=== PATIENT | female | born 1970 | race Two or more races ===

== ENCOUNTER → 2018-01-17 | Emergency (ER) | payer OTHER ==
[~2018-01-17] MED LIST: AVAPRO300 MG PO; GLUCOPHAGE XR500 MG; METFORMIN HCL500 MG; MOTRIN800 MG PO
== END | disposition left against medical advice (07) ==
LOC: ER 12:07
DX: Z53.20 Procedure and treatment not carried out because of patient's decision for unspecified reasons (principal)

== ENCOUNTER 2018-03-24 17:17 | Emergency (ER) | payer OTHER ==
[~2018-03-24] VITALS: Ht 154.9 cm; Wt 93.0 kg
== END 2018-03-24 21:46 | disposition home or self-care (01) ==
LOC: ER 17:17
DX: N83.291 Other ovarian cyst, right side (principal); R10.2 Pelvic and perineal pain

== ENCOUNTER 2018-11-14 14:59 | Emergency (ER) | payer OTHER ==
[~2018-11-14] VITALS: Ht 154.9 cm; Wt 113.4 kg
[2018-11-14] MEDS ORDERED: GLUCOPHAGE XR750 MG (15:37)
== END 2018-11-14 19:35 | disposition home or self-care (01) ==
LOC: ER 14:59
DX: K52.89 Other specified noninfective gastroenteritis and colitis (principal); E86.0 Dehydration; R10.13 Epigastric pain

== ENCOUNTER 2020-03-28 11:58 | Emergency (ER) | payer OTHER ==
[~2020-03-28] VITALS: Ht 154.9 cm; Wt 90.7 kg
[~2020-03-28 11:58] MED LIST changes: +GLUCOPHAGE XR750 MG
== END 2020-03-28 18:36 | disposition home or self-care (01) ==
LOC: ER 11:58
DX: K52.89 Other specified noninfective gastroenteritis and colitis (principal); Z03.818 Encounter for observation for suspected exposure to other biological agents ruled out

== ENCOUNTER 2022-02-18 11:01 | Day surgery (SDC) | payer OTHER ==
[~2022-02-18 11:01] MED LIST changes: +ASA81 MG PO; +NORVASC5 MG PO; +PLAVIX75 MG PO; +XIGDUO XR 10 M1 EAC1 PO
== END 2022-02-18 19:20 | disposition home or self-care (01) ==
LOC: CIR.AMB 11:01
PROVIDERS: ATTEND Student in an Organized Health Care Education/Training Program
DX: N72 Inflammatory disease of cervix uteri (principal); I10 Essential (primary) hypertension; Z86.16 Personal history of COVID-19; Z95.0 Presence of cardiac pacemaker; G43.909 Migraine, unspecified, not intractable, without status migrainosus; E66.9 Obesity, unspecified

== ENCOUNTER 2024-08-04 15:37 | Outpatient (CLI) | payer OTHER | END 2024-08-04 16:01 | disposition home or self-care (01) | LOC: RAD 15:37 | PROVIDERS: ATTEND General Practice | DX: R50.9 Fever, unspecified (principal); M06.812 Other specified rheumatoid arthritis, left shoulder ==

== ENCOUNTER 2025-02-22 11:49 | Emergency (ER) | payer OTHER ==
[~2025-02-22] VITALS: Ht 152.4 cm; Wt 86.2 kg
[2025-02-22] MEDS ORDERED: FAMOtidine 10 MG/ML (4ML VIAL) IV ONE (13:30)
[2025-02-22] MEDS ORDERED: 0.9 % SODIUM CHLORIDE 1,000 ML IV ONE (13:30)
[2025-02-22] MEDS ORDERED: ONDANSETRON HCL 2 MG/ML VIAL IV ONE (13:30)
[2025-02-22] MEDS ORDERED: DICYCLOMINE HCL 20 MG TABLET PO ONE (13:30)
[2025-02-22] MEDS ORDERED: DICYCLOMINE HCL 10 MG CAPSULE PO ONE (13:52)
[2025-02-22] MEDS ORDERED: ONDANSETRON HCL 2 MG/ML VIAL ONE (13:52)
[2025-02-22] MEDS ORDERED: FAMOTIDINE/PF 20 MG/2 ML VIAL ONE (13:53)
[2025-02-22] MEDS ORDERED: BUTALB/ACETAMINOPHEN/CAFFEINE 1 TAB TABLET PO ONE ×2 (14:44→14:45)
[2025-02-22 14:46] LABS: HEMATOCRIT 44.6 % (36.0-45.00); MEAN CELL VOLUME 85.9 fL (80.00-100.00); MEAN CORPUSCULAR HEMOGLOBIN 28.9 pg (27.00-32.0); MEAN CORPUSCULAR HGB CONC 33.7 g/dl (32.0-36.0); PLATELET COUNT 276 K/uL (150-450); RED BLOOD COUNT 5.19 M/uL (4.00-6.00); RED CELL DISTRIBUTION WIDTH 14.1 % (11.5-14.5)
[2025-02-22 15:11] LABS: ALBUMIN 3.9 gm/dL (3.4-5.0); BILIRUBIN TOTAL 0.72 mg/dL (0.3-1.2); CALCIUM 9.3 mg/dL (8.5-10.1); CREATININE SERUM 0.89 mg/dL (0.55-1.02); GFR 66.09; GLOBULINA 4.3 G/DL (2.4-3.5); POTASSIUM 3.51 mEq/L (3.5-5.1); TOTAL PROTEIN 8.2 gm/dL (6.4-8.2)
[2025-02-22 16:30] LABS: URINE APPEARANCE Cloudy; URINE BILIRRUBIN Negative (NEGATIVE); URINE BLOOD Negative; URINE COLOR Yellow; URINE KETONE Trace (NEGATIVE); URINE LEUKOCYTE Negative; URINE NITRATE Negative; URINE PROTEIN Negative (NEGATIVE); URINE UROBILINOGEN 0.2 E.U./dl
[2025-02-22 16:31] LABS: URINE BACTERIA 2905.4 uL (0.0-1933); URINE EPITHELIAL CELLS 9.1 uL (0.0-38.8); URINE WBC 9.1 uL (0.0-23.2)
[2025-02-22] MEDS ORDERED: CHOLESTYRAMINE/ASPARTAME LIGHT 4 G/PKT PACKET PO ONE (16:45)
[2025-02-22] MEDS ORDERED: KETOROLAC TROMETHAMINE 30 MG VIAL IV ONE (16:45)
[2025-02-22 16:51] LABS: URINE GLUCOSE 500 MG/DL (NEGATIVE)
[2025-02-22] MEDS ORDERED: NORFLEX100MG PO (17:00)
[2025-02-22] MEDS ORDERED: PROBIOTIC1 EAC2 PO (17:00)
[2025-02-22] MEDS ORDERED: QUESTRAN PACKET4 GM PO (17:00)
[2025-02-22] MEDS ORDERED: PROTONIX40 MG PO (17:00)
[2025-02-22] MEDS ORDERED: KETOROLAC TROMETHAMINE 30 MG VIAL ONE (17:24)
[2025-02-22] MEDS ORDERED: LOPERAMIDE HCL 2 MG CAPSULE PO ONE (17:28)
== END 2025-02-22 17:33 | disposition home or self-care (01) ==
LOC: ER 11:49
PROVIDERS: General Practice
DX: K52.9 Noninfective gastroenteritis and colitis, unspecified (principal); R10.13 Epigastric pain; R10.9 Unspecified abdominal pain; I10 Essential (primary) hypertension; E11.9 Type 2 diabetes mellitus without complications; Z79.84 Long term (current) use of oral hypoglycemic drugs

== ENCOUNTER 2025-03-09 18:35 | Emergency (ER) | payer OTHER ==
[~2025-03-09] VITALS: Ht 152.4 cm; Wt 86.2 kg
[~2025-03-09 18:35] MED LIST changes: +NORFLEX100MG PO; +PROBIOTIC1 EAC2 PO; +PROTONIX40 MG PO; +QUESTRAN PACKET4 GM PO
[2025-03-09 18:44] VITALS: BP 134/85; O2SAT 98
[2025-03-09] MEDS ORDERED: KETOROLAC TROMETHAMINE 30 MG VIAL IM STA (19:43)
[2025-03-09] MEDS ORDERED: KETOROLAC TROMETHAMINE 30 MG VIAL ONE (20:12)
[2025-03-09] MEDS ORDERED: TRAMADOL HCL 50 MG TABLET PO STA (20:23)
== END 2025-03-09 22:02 | disposition home or self-care (01) ==
LOC: ER 18:38
DX: S62.623A Displaced fracture of middle phalanx of left middle finger, initial encounter for closed fracture (principal); W18.39XA Other fall on same level, initial encounter; Y93.89 Activity, other specified; Y92.89 Other specified places as the place of occurrence of the external cause; Y99.9 Unspecified external cause status; E11.9 Type 2 diabetes mellitus without complications; Z79.84 Long term (current) use of oral hypoglycemic drugs; M79.604 Pain in right leg

== ENCOUNTER 2025-03-16 15:15 | Outpatient (CLI) | payer OTHER | END 2025-03-16 15:21 | disposition home or self-care (01) | LOC: RAD 15:15 | PROVIDERS: ATTEND Orthopaedic Surgery | DX: M79.645 Pain in left finger(s) (principal); M25.562 Pain in left knee ==

== ENCOUNTER 2025-05-22 21:35 | Emergency (ER) | payer OTHER ==
[~2025-05-22] VITALS: Ht 152.4 cm; Wt 87.1 kg
[2025-05-22] MEDS ORDERED: ELIQUIS5 MG PO (21:38)
[2025-05-22] MEDS ORDERED: ACETAMINOPHEN 500 MG GEL..CAP PO ONE (22:30)
[2025-05-23] MEDS ORDERED: DOLOGESIC-DF 51 EACH PO (03:24)
== END 2025-05-23 03:40 ==
LOC: ER 21:59
DX: S02.2XXA Fracture of nasal bones, initial encounter for closed fracture (principal); W19.XXXA Unspecified fall, initial encounter; Y93.89 Activity, other specified; Y92.89 Other specified places as the place of occurrence of the external cause; Y99.9 Unspecified external cause status; E11.9 Type 2 diabetes mellitus without complications; Z79.84 Long term (current) use of oral hypoglycemic drugs; I10 Essential (primary) hypertension; Z86.73 Personal history of transient ischemic attack (TIA), and cerebral infarction without residual deficits